=== PATIENT | female | born 1985 | race Caucasian/White ===

== ENCOUNTER 2016-12-17 19:48 | Emergency (ER) | payer OTHER ==
[~2016-12-17] VITALS: Ht 162.6 cm; Wt 52.7 kg
[~2016-12-17 19:48] MED LIST: CIPR500T4 PO; PHEN95TA29 PO
[2016-12-17 20:12] VITALS: Ht 162.6 cm; Wt 52.7 kg
[2016-12-17] MEDS ORDERED: morphine 4 MG/ML VIAL IV STA (20:37)
[2016-12-17] MEDS ORDERED: SOD CHLORIDE 0.9% 1,000 ML IV STA (20:37)
[2016-12-17] MEDS ORDERED: ONDANSETRON 4 MG INJ IV STA ×2 (20:37→23:50)
[2016-12-17 21:18] LABS: ADD SCAN DIFF NO
[2016-12-17 21:22] LABS: BASOPHILS % 0.4 % (0.0-2.0); EOSINOPHILS # 0.2 10^3/ul (0.0-0.5); EOSINOPHILS % 3.4 % (0.0-7.0); HEMATOCRIT 40.3 % (37.0-47.0); HEMOGLOBIN 13.6 g/dl (12.0-16.0); LYMPHOCYTES # 2.5 10^3/ul (0.8-2.9); LYMPHOCYTES % 34.9 % (15.0-51.0); MEAN CORPUSCULAR HEMOGLOBIN 31.9 pg (29.0-33.0); MEAN CORPUSCULAR HGB CONC 33.7 g/dl (32.0-37.0); MEAN CORPUSCULAR VOLUME 94.6 fl (82.0-101.0); MONOCYTE # 0.5 10^3/ul (0.3-0.9); MONOCYTES % 7.1 % (0.0-11.0); NEUTROPHIL # 3.8 10^3/ul (1.6-7.5); NEUTROPHILS % 53.9 % (39.0-77.0); PLATELET COUNT 301 10^3/UL (140-415); RED BLOOD COUNT 4.26 10^6/ul (4.20-5.40); RED CELL DISTRIBUTION WIDTH 13.1 % (11.5-14.5)
[2016-12-17 21:28] LABS: ADD UMIC YES; URINE BILIRUBIN (Dip) NEGATIVE (NEGATIVE); URINE BLOOD (Dip) TRACE (NEGATIVE); URINE COLOR LT. YELLOW (YELLOW); URINE GLUCOSE (Dip) NEGATIVE (NEGATIVE); URINE KETONES (Dip) NEGATIVE (NEGATIVE); URINE LEUKOCYTE ESTERASE (Dip) 1+ (NEGATIVE); URINE NITRITE (Dip) NEGATIVE (NEGATIVE); URINE TOTAL PROTEIN (Dip) NEGATIVE (NEGATIVE); URINE UROBILINOGEN (Dip) 0.2 E.U./dL (0.1-1.0)
[2016-12-17 21:32] LABS: ALBUMIN 4.7 g/dl (3.3-4.9)
[2016-12-17 21:33] LABS: POTASSIUM 4.6 mmol/L (3.5-5.1)
[2016-12-17 21:35] LABS: BILIRUBIN,INDIRECT 0.3 mg/dl (0-1.1); BILIRUBIN,TOTAL 0.3 mg/dl (0.2-1.3); CREATININE 0.64 mg/dl (0.44-1.00)
[2016-12-17 21:36] LABS: ALBUMIN/GLOBULIN RATIO 1.51; TOTAL PROTEIN 7.8 g/dl (6.1-8.1)
[2016-12-17 21:43] LABS: BACTERIA,URINE OCCASIONAL; SQUAMOUS EPITHELIAL CELL,UR FEW; URINE RBCS 0-2 /HPF (0)
[2016-12-17 21:47] LABS: CANNABINOIDS Negative (NEGATIVE)
[2016-12-17 21:50] LABS: BARBITURATES Negative (NEGATIVE); BENZODIAZEPINES Negative (NEGATIVE); COCAINE Negative (NEGATIVE); OPIATES Negative (NEGATIVE)
--- NOTE | 2016-12-17 22:19 | RADRPT ---
PROCEDURE: CT KUB. CLINICAL INDICATION: Abdominal Pain TECHNIQUE: CT KUB (Renal Stone Survey) without contrast was performed on a GE volumetric [address] scanner. No IV contrast was administered. 3-D coronal reformatted images were obtained from the axial source images. COMPARISON: No prior studies are available for comparison. CTDI: 4.8 mGy DLP: 239 mGy-cm FINDINGS: Visualized lung bases are clear. No pleural effusions. The unenhanced liver, spleen, bilateral adrenal glands, gallbladder, and pancreas are normal-appeari ng. The bilateral kidneys are normal-appearing without hydronephrosis nor nephrolithiasis. The urinary bladder is grossly normal. The uterus is grossly normal. The small and large bowel are thin-walled and nondilated without evidence for obstruction. Copious stool seen throughout the colon. The appendix is seen and is normal. The abdominal aorta is normal in caliber. No free air, free fluid, mesenteric stranding, nor abdominal pelvic adenopathy. No suspicious osseous lesions. IMPRESSION: No acute intra-abdominal nor intrapelvic process. Normal appendix. Copious stool seen throughout the colon. Physician Ramiro Date Time Electronically viewed and signed by Physician Ramiro on 12/17/2016 22:19 ML/
[2016-12-17] MEDS ORDERED: DOCU-144 PO (23:25)
[2016-12-17] MEDS ORDERED: NITR-58 PO (23:25)
--- NOTE | 2016-12-17 23:27 | ERD ---
ER Documentation Chief Complaint Date/Time DATE: 12/17/16 TIME: 23:27 Chief Complaint UPPER QUAD AP TODAY +N/V DIZZINESS HPI Patient is a 31-year-old female who presents to the emergency department with epigastric pain which started today. Patient states the pain started approximately 3 hours ago. Patient states she had a similar episode of epigastric pain 3 days ago however it resolved by itself. Patient states that her current pain is localized to the epigastric region. Patient denies any radiation of the pain. Patient states the pain is sharp and stabbing in nature. Patient reports bloating. Patient also states that she feels excessively sleepy and dizzy. Patient reports feeling nauseous. Patient denies any Vomiting, fever, chills, diarrhea, painful urination, vaginal bleeding or excessive vaginal discharge. Patient's roommate states the patient has been "unusually agitated and at time altered" today. Patient states that she feels like she is "on drugs," however she denies any drug use. Patient denies any she denies any chest pain, shortness of breath, diaphoresis. Patient denies any cough, rhinorrhea, sore throat, ear pain. ROS All systems reviewed and are negative except as per history of present illness. Medications Home Meds Active Scripts Docusate Sodium* (Colace*) 100 Mg Capsule, 100 MG PO BID, #30 CAP Prov:JODI GONZALES PA-C 12/17/16 Nitrofurantoin Monohyd Macrocr* (Macrobid*) 100 Mg Capsr, 100 MG PO BID for 5 Days, CAP Prov:JODI GONZALES PA-C 12/17/16 Phenazopyridine Hcl* (AZO*) 95 Mg Tablet, 95 MG PO TID, #10 TAB Prov:ALE WITT PA-C 01/18/16 Ciprofloxacin Hcl* (Ciprofloxacin Hcl*) 500 Mg Tablet, 500 MG PO BID for 7 Days , TAB Prov:ALE WITT PA-C 01/18/16 PMhx/Soc Medical and Surgical Hx: pt denies Medical Hx History of Surgery: Yes (TA) Hx Alcohol Use: Yes (socially) Hx Substance Use: No Hx Tobacco Use: Yes Smoking Status: Current every day smoker FmHx Family History: No diabetes Physical Exam Vitals Vital Signs Date Time Temp Pulse Resp B/P Pulse Ox O2 Delivery O2 Flow Rate FiO2 12/18/16 00:00 98.4 88 17 121/83 100 Room Air 12/17/16 20:12 98.6 56 20 136/79 100 Physical Exam GENERAL: Well-developed, well-nourished female. HEAD: Normocephalic, atraumatic. No deformities or ecchymosis. EYE: Pupils equal, round, and reactive to light. EOMs intact. No conjunctival erythema. No eye discharge. ENT: External ear without any masses or tenderness. Auditory canals clear bilaterally. TM visualized bilaterally, non-erythematous, non-bulging. Nasal mucosa pink with no discharge. Oropharynx is pink without any tonsillar erythema or exudates. No uvula deviation. No kissing tonsils. NECK: Supple. No meningismus. Normal ROM of the neck. LUNG: Clear to auscultation bilaterally. No rhonchi, wheezing, rales or coarse breath sounds. HEART: Regular rate and rhythm. No murmurs, rubs or gallops. ABDOMEN: Soft, and nondistended. Tender to palpation in the epigastric and periumbilical region. Positive bowel sounds in all four quadrants. No rebound tenderness, no guarding. (-) McBurney's point tenderness. No CVA tenderness. BACK: No midline tenderness. EXTREMITIES: Equal pulses bilaterally. No peripheral clubbing, cyanosis or edema. No unilateral leg swelling. NEUROLOGIC: Alert and oriented to person, place and time. Moving all four extremities. 5/5 strength in all extremities. Normal speech. Steady gait. SKIN: Normal color. Warm and dry. No rashes or lesions. PSYCH: Slow to respond Result Diagram: 12/17/16210912/17/162109 Results 24 hrs Laboratory Tests Test 12/17/16 21:10 12/17/16 21:16 12/17/16 21:20 12/17/16 22:51 Alanine Aminotransferase (ALT/SGPT) 18IU/L Albumin 4.7g/dl Albumin/Globulin Ratio 1.51 Alkaline Phosphatase 54IU/L Anion Gap 19 Aspartate Amino Transf (AST/SGOT) 32IU/L Basophils # 0.010^3/ul Basophils % 0.4% Blood Urea Nitrogen 14mg/dl Calcium Level 9.0mg/dl Carbon Dioxide Level 24mmol/L Chloride Level 105mmol/L Creatinine 0.64mg/dl Direct Bilirubin 0.00mg/dl Eosinophils # 0.210^3/ul Eosinophils % 3.4% Globulin 3.10g/dl Glucose Level 91mg/dl Hematocrit 40.3% Hemoglobin 13.6g/dl Indirect Bilirubin 0.3mg/dl Lipase 125U/L Lymphocytes # 2.510^3/ul Lymphocytes % 34.9% Mean Corpuscular Hemoglobin 31.9pg Mean Corpuscular Hemoglobin Concent 33.7g/dl Mean Corpuscular Volume 94.6fl Mean Platelet Volume 11.0fl Monocytes # 0.510^3/ul Monocytes % 7.1% Neutrophils # 3.810^3/ul Neutrophils % 53.9% Nucleated Red Blood Cells # 0.010^3/ul Nucleated Red Blood Cells % 0.0/100WBC Platelet Count 89457^3/UL Potassium Level 4.6mmol/L Red Blood Count 4.2610^6/ul Red Cell Distribution Width 13.1% Sodium Level 143mmol/L Total Bilirubin 0.3mg/dl Total Protein 7.8g/dl White Blood Count 7.010^3/ul Urine Amphetamines Screen Negative Urine Bacteria OCCASIONAL Urine Barbiturates Negative Urine Benzodiazepines Screen Negative Urine Bilirubin NEGATIVE Urine Cannabinoids Negative Urine Clarity CLEAR Urine Cocaine Screen Negative Urine Color LT. YELLOW Urine Glucose NEGATIVE% Urine Hemoglobin TRACE Urine Ketones NEGATIVE Urine Leukocyte Esterase 1+ Urine Microscopic RBC 0-2/HPF Urine Microscopic WBC 5-10/HPF Urine Nitrite NEGATIVE Urine Opiates Screen Negative Urine Specific [place] 1.020 Urine Squamous Epithelial Cells FEW Urine Total Protein NEGATIVE Urine Urobilinogen 0.2 E.U./dL Urine pH 6.0 Thyroid Stimulating Hormone (TSH) 2.330MIU/L Bedside Glucose 85mg/dL Current Medications Medications (Trade) Dose Ordered Sig/Garret Route PRN Reason Start Time Stop Time Status Last Admin Dose Admin Sodium Chloride (NS) 1,000 ml @ 1,000 mls/hr Q1H STAT IV 12/17/16 20:37 12/17/16 21:36 DC 12/17/16 21:04 Morphine Sulfate (morphine) 4 mg ONCE STAT IV 12/17/16 20:37 12/17/16 20:40 DC 12/17/16 21:04 Ondansetron HCl (Zofran Inj) 4 mg ONCE STAT IV 12/17/16 20:37 12/17/16 20:40 DC 12/17/16 21:04 Ondansetron HCl (Zofran Inj) 2 mg ONCE STAT IV 12/17/16 23:50 12/17/16 23:51 DC 12/17/16 23:58 Procedures/MDM ED COURSE: The patient was stable throughout ED course. I kept the patient and/or family informed of laboratory and diagnostic imaging results throughout the ED course. DIAGNOSTIC IMAGING: Read by radiologist. DIAGNOSTIC IMAGING REPORT Patient: HAILEY DRISCOLL : 1985 Age: 31 Sex: F MR #: [id number] DOS: 12/17/162036 Ordering MD: JODI GONZALES PA-C Location: [facility] Room/Bed: PROCEDURE: CT KUB. CLINICAL INDICATION: Abdominal Pain TECHNIQUE: CT KUB (Renal Stone Survey) without contrast was performed on a [employer] volumetric [address] scanner. No IV contrast was administered. 3-D coronal reformatted images were obtained from the axial source images. COMPARISON: No prior studies are available for comparison. CTDI: 4.8 mGy DLP: 239 mGy-cm FINDINGS: Visualized lung bases are clear. No pleural effusions. The unenhanced liver, spleen, bilateral adrenal glands, gallbladder, and pancreas are normal-appearing. The bilateral kidneys are normal-appearing without hydronephrosis nor nephrolithiasis. The urinary bladder is grossly normal. The uterus is grossly normal. The small and large bowel are thin-walled and nondilated without evidence for obstruction. Copious stool seen throughout the colon. The appendix is seen and is normal. The abdominal aorta is normal in caliber. No free air, free fluid, mesenteric stranding, nor abdominal pelvic adenopathy. No suspicious osseous lesions. IMPRESSION: No acute intra-abdominal nor intrapelvic process. Normal appendix. Copious stool seen throughout the colon. Physician Ramiro Date Time Electronically viewed and signed by Physician Ramiro on 12/17/2016 22 :19 ML/ CC: JODI GONZALES PA-C MEDICATIONS GIVEN: Fluids, morphine, Zofran 2. She was given her second dose of Zofran tired to discharge given the patient felt slightly nauseous prior to discharge. Patient tolerated medication well with no adverse reactions. Patient reported improvement in pain. MEDICAL DECISION MAKING: This is a 31-year-old female who presents with epigastric pain 3 hours. Vital signs were reviewed. Patient is afebrile. CBC showed no evidence of systemic infection or severe anemia. CMP showed no evidence of electrolyte abnormalities , severe acidosis, alkalosis, renal failure, or liver disease. Lipase showed no evidence of acute pancreatitis. TSH within normal limits. Patient's urine drug screening was negative. UA showed trace leukocyte esterase, 5-10 WBCs, few epithelial squamous cells. Urine was negative. CT abdomen and pelvis showed no acute intra-abdominal nor intrapelvic process. Normal appendix. Copious stool seen throughout the colon. At this time, patient's presentation is most consistent with the epigastric pain and UTI. I have a much lower clinical concern for acute coronary syndrome , AAA, mesenteric ischemia, lower lobe pneumonia, DKA, bowel perforation, bowel obstruction, cholecystitis, choledocholithiasis, pancreatitis, GERD, splenic rupture, diverticulitis, pyelonephritis, nephrolithiasis, appendicitis, constipation, , ectopic . PRESCRIPTIONS: Colace, Macrobid DISCHARGE: At this time, patient is stable for discharge and outpatient management. Patient provided with a copy of all imaging and lab studies performed today. I have instructed the patient to follow-up with his/her primary care physician in 1-2 days. Patient advised that she may need to follow up with a specialist for further managment of her symptoms. I have instructed the patient to promptly return to the ER at any time for any new or worsening symptoms including increased pain, nausea, vomiting, diarrhea, fever, weakness or LOC. The patient and/or family expressed understanding of and agreement with this plan. All questions were answered. Home care instructions were provided. Departure Diagnosis: Primary Impression: UTI (urinary tract infection) Urinary tract infection type: site unspecified Hematuria presence: without hematuria Qualified Code: N39.0 - Urinary tract infection without hematuria, site unspecified Additional Impression: Abdominal pain Abdominal location: unspecified location Qualified Code: R10.9 - Abdominal pain, unspecified location Condition: Stable Patient Instructions: Abdominal Pain, Understanding Urinary Tract Infections ( UTIs) Referrals: [facility] YOU HAVE RECEIVED A MEDICAL SCREENING EXAM AND THE RESULTS INDICATE THAT YOU DO NOT HAVE A CONDITION THAT REQUIRES URGENT TREATMENT IN THE EMERGENCY DEPARTMENT. FURTHER EVALUATION AND TREATMENT OF YOUR CONDITION CAN WAIT UNTIL YOU ARE SEEN IN YOUR DOCTORS OFFICE WITHIN THE NEXT 1-2 DAYS. IT IS YOUR RESPONSIBILITY TO MAKE AN APPOINTMENT FOR FOLOW-UP CARE. IF YOU HAVE A PRIMARY DOCTOR --you should call your primary doctor and schedule an appointment IF YOU DO NOT HAVE A PRIMARY DOCTOR YOU CAN CALL OUR PHYSICIAN REFERRAL HOTLINE AT IF YOU CAN NOT AFFORD TO SEE A PHYSICIAN YOU CAN CHOSE FROM THE FOLLOWING [facility] [address] [facility]. [facility] [address] [facility] [facility] [address] [facility] [address] [facility] [address] [facility]. [facility] [address] [facility]. [facility] YOU HAVE RECEIVED A MEDICAL SCREENING EXAM AND THE RESULTS INDICATE THAT YOU DO NOT HAVE A CONDITION THAT REQUIRES URGENT TREATMENT IN THE EMERGENCY DEPARTMENT. FURTHER EVALUATION AND TREATMENT OF YOUR CONDITION CAN WAIT UNTIL YOU ARE SEEN IN YOUR DOCTORS OFFICE WITHIN THE NEXT 1-2 DAYS. IT IS YOUR RESPONSIBILITY TO MAKE AN APPOINTMENT FOR FOLOW-UP CARE. IF YOU HAVE A PRIMARY DOCTOR --you should call your primary doctor and schedule and appointment IF YOU DO NOT HAVE A PRIMARY DOCTOR YOU CAN CALL OUR PHYSICIAN REFERRAL HOTLINE AT . IF YOU CAN NOT AFFORD TO SEE A PHYSICIAN YOU CAN CHOSE FROM THE FOLLOWING [facility] INSTITUTIONS: [facility] [address] [place] [address] [facility] [address] [place] [address] [facility] [address] [place] [address] Additional Instructions: Call your primary care doctor TOMORROW for an appointment during the next 1-2 days.See the doctor sooner or return here if your condition worsens before your appointment time. JODI GONZALES PA-C Dec 17, 2016 23:27
[2016-12-18] VITALS: BP 121/83; PULSE 88; RESP 17; TEMP 98.4
== END 2016-12-18 00:02 | disposition home or self-care (01) ==
LOC: FTE 19:48
DX: N39.0 Urinary tract infection, site not specified (principal); F17.210 Nicotine dependence, cigarettes, uncomplicated; R11.0 Nausea
CPT/HCPCS: 36415; 74176; 80053; 80307; 81001; 82962; 83690; 84443; 85025; 96374; 96375; J2270; J2405; J7030; Z7502; 81003

== ENCOUNTER 2017-11-08 22:46 | Emergency (ER) | END 2017-11-09 03:05 | disposition home or self-care (01) ==

== ENCOUNTER 2019-02-18 12:14 | Emergency (ER) | payer SELFPAY ==
[~2019-02-18] VITALS: Ht 157.5 cm; Wt 55.0 kg
[~2019-02-18 12:14] MED LIST changes: +ACET325T33 PO; +DOCU-144 PO; +IBUP-1542 PO; +IBUP-1561 PO; +LEVO750T25 PO; +OSEL75CA23 PO
[2019-02-18 12:30] VITALS: Ht 157.5 cm; Wt 55.0 kg
[2019-02-18] MEDS ORDERED: ALBU8.5H8 INH (13:53)
[2019-02-18] MEDS ORDERED: PROM6.2515 PO (13:53)
[2019-02-18] MEDS ORDERED: BENZ-6 PO (13:53)
--- NOTE | 2019-02-18 14:58 | ERD ---
ER Documentation Chief Complaint Chief Complaint COUGH; PAINFUL SWALLOWING; HPI 33-year-old female presenting with cough and pain with swallowing. Patient has a sore throat. She has had some wheezing at home and has not had a history of asthma in the past. Patient has been taking TheraFlu. Denies any fevers. Me dical history is pneumonia and bronchitis. NKDA. Questionably allergic to amoxicillin but unsure. Surgical history is tonsillectomy. Social history denies ROS All systems reviewed and are negative except as per history of present illness. Medications Home Meds Active Scripts Albuterol Sulfate* (Proair HFA*) 8.5 Gm Hfa.aer.ad, 2 PUFF INH Q4, #1 INHALER Prov:LIAM ANTOINE PA-C 02/18/19 Promethazine Hcl* (Promethazine Hcl* Syrup) 6.25 Mg/5 Ml Syrup, 6.25 MG PO Q6H PRN for COUGH, #100 ML Prov:LIAM ANTOINE PA-C 02/18/19 Benzonatate* (Tessalon Perle*) 100 Mg Capsule, 100 MG PO Q8H PRN for COUGH, #30 CAP Prov:LIAM ANTOINE PA-C 02/18/19 Ibuprofen* (Motrin*) 400 Mg Tab, 400 MG PO Q6, #30 TAB Prov:CHRIS HURTADO PA-C 02/16/18 Levofloxacin* (Levaquin*) 750 Mg Tablet, 750 MG PO DAILY for 7 Days, TAB Prov:RICHA PEDRAZA PA-C 11/09/17 Acetaminophen* (Tylenol*) 325 Mg Tablet, 1 TAB PO Q4 PRN for PAIN AND OR ELEVATED TEMP, #20 TAB Prov:RICHA PEDRAZA PA-C 11/09/17 Ibuprofen* (Motrin*) 600 Mg Tab, 600 MG PO Q6, #30 TAB Prov:RICHA PEDRAZA PA-C 11/09/17 Oseltamivir Phosphate* (Tamiflu*) 75 Mg Capsule, 75 MG PO BID for 5 Days, CAP Prov:RICHA PEDRAZAC 11/09/17 Docusate Sodium* (Colace*) 100 Mg Capsule, 100 MG PO BID, #30 CAP Prov:JODI GONZALES PA-C 12/17/16 Phenazopyridine Hcl* (AZO*) 95 Mg Tablet, 95 MG PO TID, #10 TAB Prov:ALE WITT PA-C 01/18/16 Ciprofloxacin Hcl* (Ciprofloxacin Hcl*) 500 Mg Tablet, 500 MG PO BID for 7 Days, TAB Prov:CRISTIANFranciscaALE Vazquez PA-C 01/18/16 Allergies Allergies: Coded Allergies: No Known Allergy (Unverified , 11/08/17) PMhx/Soc History of Surgery: Yes (TA) Hx Respiratory Disorders: Yes (asthma) Hx Alcohol Use: No Hx Substance Use: No Hx Tobacco Use: Yes FmHx Family History: No diabetes, No coronary disease, No other Physical Exam Vitals Vital Signs Date Temp Pulse Resp B/P (MAP) Pulse Ox O2 O2 Flow FiO2 Time Delivery Rate 02/18/19 98.5 67 18 111/64 100 12:30 (80) Physical Exam GENERAL: The patient is well-appearing, well-nourished, in no acute distress HEENT: Atraumatic. Conjunctivae are pink. Pupils equal, round, and reactive to light. There is no scleral icterus. Tympanic membranes clear bilaterally. Oropharynx clear. NECK: C-spine is soft and supple. There is no meningismus. There is no cervical lymphadenopathy. CHEST: Clear to auscultation bilaterally. There are no rales, wheezes or rhonchi. HEART: Regular rate and rhythm. No murmurs, clicks, rubs or gallops. . Procedures/MDM DIAGNOSTIC IMAGING REPORT Patient: HAILEY DRISCOLL : 1985 Age: 33 Sex: F [id number] [id number] DOS: 02/18/19 1308 Ordering MD: HESHAM ANTOINE PA-C Location: [facility] Room/Bed: PROCEDURE: XR Chest. CLINICAL INDICATION: Cough TECHNIQUE: Single frontal view of the chest was obtained COMPARISON: None FINDINGS: The heart and mediastinum are within normal limits. The lungs are clear. There is no pleural effusion or pneumothorax. RPTAT: AA IMPRESSION: No acute disease. MDM: 33-year-old female presenting with cough. I have low suspicion for pneumonia. I have low suspicion for respiratory distress or hypoxia. Patient's exam is non-concerning. Patient likely has viral syndrome. Patient is discharged with strict ER precautions and told to follow-up with primary care within 1 to 2 days for close evaluation. Patient is discharged with supportive medications. All questions answered at discharge Departure Diagnosis: Primary Impression: Cough Condition: Stable Patient Instructions: Cough, Chronic, Uncertain Cause, (Adult) Referrals: [facility] YOU HAVE RECEIVED A MEDICAL SCREENING EXAM AND THE RESULTS INDICATE THAT YOU DO NOT HAVE A CONDITION THAT REQUIRES URGENT TREATMENT IN THE EMERGENCY DEPARTMENT. FURTHER EVALUATION AND TREATMENT OF YOUR CONDITION CAN WAIT UNTIL YOU ARE SEEN IN YOUR DOCTORS OFFICE WITHIN THE NEXT 1-2 DAYS. IT IS YOUR RESPONSIBILITY TO [facility] AN [facility]. IF YOU HAVE A PRIMARY DOCTOR --you should call your primary doctor and schedule an appointment IF YOU DO NOT HAVE A PRIMARY DOCTOR YOU CAN CALL OUR PHYSICIAN REFERRAL HOTLINE AT IF YOU CAN NOT AFFORD TO SEE A PHYSICIAN YOU CAN CHOSE FROM THE FOLLOWING [facility] [address] [facility]. [facility] [address] [facility] [address] [facility] [facility] [address] [facility]. [facility] [address] [facility]. [facility]. [address] Additional Instructions: FOLLOW UP WITH YOUR PRIMARY CARE PHYSICIAN TOMORROW.Return to this facility if you are not improving as expected. LIAM ANTOINE PA-C February 18, 2019 14:58
[2019-02-18 15:22] VITALS: BP 107/74; PULSE 65; RESP 18
== END 2019-02-18 15:25 | disposition home or self-care (01) ==
LOC: FTE 12:14
DX: J45.901 Unspecified asthma with (acute) exacerbation (principal); Z87.891 Personal history of nicotine dependence
CPT/HCPCS: 71045